=== PATIENT | male | born 1950 | race Two or more races ===

== ENCOUNTER 2018-03-31 13:23 | Outpatient (CLI) | payer OTHER | END 2018-03-31 15:41 | disposition home or self-care (01) | LOC: LAB 13:23 | DX: R50.9 Fever, unspecified (principal) ==

== ENCOUNTER 2018-11-10 14:10 | Outpatient (CLI) | payer OTHER | END 2018-11-10 14:25 | disposition home or self-care (01) | LOC: RAD 14:10 | DX: M75.31 Calcific tendinitis of right shoulder (principal) ==

== ENCOUNTER 2019-01-06 11:06 | Emergency (ER) | payer OTHER ==
[~2019-01-06] VITALS: Ht 170.2 cm; Wt 93.0 kg
[2019-01-06] MEDS ORDERED: NORVASC2.5 M1 (11:22)
[2019-01-06] MEDS ORDERED: ASPIR 8181 MG (11:23)
[2019-01-06] MEDS ORDERED: XARELTO20 MG (11:23)
[2019-01-06] MEDS ORDERED: MAXZIDE 37.5 M1 EACH (11:23)
[2019-01-06] MEDS ORDERED: CRESTOR5 MG (11:23)
[2019-01-06] MEDS ORDERED: TIAZAC120 M1 (11:23)
[2019-01-06] MEDS ORDERED: ZANTAC300 MG (11:24)
== END 2019-01-06 18:13 | disposition home or self-care (01) ==
LOC: ER 11:06
DX: L02.512 Cutaneous abscess of left hand (principal); B95.1 Streptococcus, group B, as the cause of diseases classified elsewhere; B96.1 Klebsiella pneumoniae [K. pneumoniae] as the cause of diseases classified elsewhere; B96.6 Bacteroides fragilis [B. fragilis] as the cause of diseases classified elsewhere; B96.89 Other specified bacterial agents as the cause of diseases classified elsewhere

== ENCOUNTER 2019-08-27 09:34 | Outpatient (CLI) | payer OTHER ==
[~2019-08-27 09:34] MED LIST: ASPIR 8181 MG; CRESTOR5 MG; MAXZIDE 37.5 M1 EACH; NORVASC2.5 M1; TIAZAC120 M1; XARELTO20 MG; ZANTAC300 MG
== END 2019-08-27 09:40 | disposition home or self-care (01) ==
LOC: SONOGRAMA 09:34
DX: K80.80 Other cholelithiasis without obstruction (principal); R10.84 Generalized abdominal pain

== ENCOUNTER 2019-10-02 15:04 | Outpatient (CLI) | payer OTHER | END 2019-10-02 15:06 | disposition home or self-care (01) | LOC: RAD 15:04 | DX: M79.672 Pain in left foot (principal) ==

== ENCOUNTER 2020-11-07 14:15 | Outpatient (CLI) | payer OTHER ==
[~2020-11-07 14:15] MED LIST changes: +PRILOSEC OTC20 MG
== END 2020-11-07 14:22 | disposition home or self-care (01) ==
LOC: RAD 14:15
PROVIDERS: ATTEND Internal Medicine Rheumatology
DX: M19.042 Primary osteoarthritis, left hand (principal); M19.041 Primary osteoarthritis, right hand